=== PATIENT | female | born 1955 | race Caucasian/White ===

== ENCOUNTER 2017-02-17 12:58 | Emergency (ER) | payer BC ==
[~2017-02-17] VITALS: Ht 160 cm; Wt 70.0 kg
[~2017-02-17 12:58] MED LIST: ASPI-650 PO; ATEN-51 PO; BENA10TA48 PO; HYDR12.58 PO; PRAV10TA43 PO; TRIF10TA; TRIF5TAB7; TRIH2TAB2
[2017-02-17 13:06] VITALS: Ht 160 cm; Wt 70.0 kg
[2017-02-17] MEDS ORDERED: LIDOCAINE 1% (MDV) 20 ML INJ SC ONE (14:00)
--- NOTE | 2017-02-17 14:26 | RADRPT ---
PROCEDURE: XR Finger. CLINICAL INDICATION: Trauma. Left third finger pain. TECHNIQUE: Three views. Frontal, lateral, and oblique. COMPARISON: None available FINDINGS: There is an acute minimally displaced fracture of the terminal tuft of the third distal phalanx. Th ere is no other fracture and there is no dislocation. There is soft tissue injury overlying the fracture. Articular surfaces are intact. There is no lytic or blastic lesion. There is no radiopaque foreign body. IMPRESSION: 1. Acute minimally displaced fracture of the terminal tuft of the third distal phalanx with overlyi ng soft tissue injury. 2. Otherwise unremarkable images of the left third finger. RPTAT: QQ .Ruddy Davis MD, MD Date Time Electronically viewed and signed by .Ruddy Davis MD, on 02/17/2017 14:26 .R/
[2017-02-17] MEDS ORDERED: DIPHTH/TET/ACEL PERTUSS (ADULT) 0.5 ML VIAL IM* ONE (15:30)
[2017-02-17 15:43] VITALS: BP 161/83; PULSE 85; RESP 18; TEMP 97.5
--- NOTE | 2017-02-17 15:47 | ERD ---
ER Documentation Chief Complaint Date/Time DATE: 02/17/17 TIME: 15:42 Chief Complaint Pt with Lac to middle finger L hand after door closed on finger. HPI This is a 61-year-old female presenting to emergency department for laceration that occurred today. Patient states she slammed her middle left finger in a large steel door earlier today about 1 hour prior to arrival. At that time patient noticed a laceration to right middle fingertip. Patient denies any numbness or tingling to her extremity. No loss of sensation. Patient has active bleeding while in the ED. No fevers or chills. Patient has not had tetanus vaccine in over 10 years. ROS All systems reviewed and are negative except as per history of present illness. Medications Home Meds Reported Medications Trifluoperazine Hcl (Stelazine) 5 Mg Tab 02/16/13 Aspirin (Aspirin) 81 Mg Tablet, 81 MG PO DAILY 07/11/11 Hydrochlorothiazide* (Hydrochlorothiazide*) 12.5 Mg Tablet, 12.5 MG PO DAILY 07/11/11 Pravastatin Sodium* (Pravastatin Sodium*) 10 Mg Tablet, 10 MG PO DAILY 07/11/11 Atenolol* (Atenolol*) 25 Mg Tablet, 25 MG PO DAILY 07/11/11 Benazepril Hcl* (Benazepril Hcl*) 10 Mg Tablet, 10 MG PO DAILY 07/11/11 Trihexyphenidyl Hcl* (Artane*) 2 Mg Tab 08/08/10 Trifluoperazine Hcl (Trifluoperazine Hcl) 10 Mg Tablet 08/08/10 Allergies Allergies: Coded Allergies: No Known Allergies (Verified Allergy, Mild, 07/11/11) PMhx/Soc History of Surgery: No Anesthesia Reaction: No Hx Neurological Disorder: No Hx Respiratory Disorders: No Hx Cardiac Disorders: Yes (htn) Hx Psychiatric Problems: Yes (schizo) Hx Miscellaneous Medical Probl: No Hx Alcohol Use: No Hx Substance Use: No Hx Tobacco Use: No Smoking Status: Never smoker Physical Exam Vitals Vital Signs Date Time Temp Pulse Resp B/P Pulse Ox O2 Delivery O2 Flow Rate FiO2 02/17/17 13:06 97.9 104 18 141/87 97 Physical Exam Const: No acute distress, alert Head: Atraumatic Eyes: Normal Conjunctiva ENT: Normal External Ears, Nose and Mouth. Neck: Full range of motion..~ No meningismus. Resp: Clear to auscultation bilaterally Cardio: Regular rate and rhythm, no murmurs Abd: Soft, non tender, non distended. Normal bowel sounds Skin: No petechiae or rashes Back: No midline or flank tenderness Ext: Small laceration to distal aspect of right middle digit finger tip near nail bed. Neur: Awake and alert Psych: Normal Mood and Affect Results 24 hrs Current Medications Medications (Trade) Dose Ordered Sig/Ana Route PRN Reason Start Time Stop Time Status Last Admin Dose Admin Lidocaine (Xylocaine 1% (Mdv) 20 ml) 20 ml ONCE ONCE SC 02/17/17 14:00 02/17/17 14:01 DC Diphtheria/ Tetanus/Acell Pertussis (Adacel) 0.5 ml ONCE ONCE IM* 02/17/17 15:30 02/17/17 15:31 DC 02/17/17 15:11 Procedures/MDM Patient: DEBORAH VASQUEZ : 1955 Age: 61 Sex: F MR #: [id number] DOS: 02/17/17 1339 Ordering MD: ESTEFANIA GLASS NP Location: [facility] Room/Bed: PROCEDURE: XR Finger. CLINICAL INDICATION: Trauma. Left third finger pain. TECHNIQUE: Three views. Frontal, lateral, and oblique. COMPARISON: None available FINDINGS: There is an acute minimally displaced fracture of the terminal tuft of the third distal phalanx. There is no other fracture and there is no dislocation. There is soft tissue injury overlying the fracture. Articular surfaces are intact. There is no lytic or blastic lesion. There is no radiopaque foreign body. IMPRESSION: 1. Acute minimally displaced fracture of the terminal tuft of the third distal phalanx with overlying soft tissue injury. 2. Otherwise unremarkable images of the left third finger. MDM: 61-year-old female presents emergency department after injury to left third digit. Patient sustained laceration to distal aspect of left third digit. Laceration repair as described below. X-ray left third digit reviewed by radiologist as acute minimally displaced fracture of the terminal tuft of the third distal phalanx with overlying soft tissue injury. A metal splint was applied and patient remains neurovascularly intact pre-and post splint application. aceration Repair by me: Verbal consent obtained for laceration repair. Anesthesia: 1% lidocaine locally Location: distal aspect of left 3rd digit near nail bed Tendon/Joint/Nerves: No injury Foreign body: None detected after copious irrigation and exploration Technique: 4 Simple Interrupted Sutures Complexity: No subcutaneous sutures/mucosal repair/edge excision Post Closure Length: 1.5 cm Patient's bleeding was easily controlled in the department and there is no indication of anemia. No evidence of compartment syndrome, neurologic injury, vascular injury, open joint, tendon laceration, or foreign body. Patient is appropriate for outpatient follow up. 48 hour wound check. Scar minimization instructions given. Departure Diagnosis: Primary Impression: Laceration Additional Impression: Fracture, finger, distal phalanx Encounter type: initial encounter Finger: middle finger Fracture type: closed Fracture alignment: displaced Laterality: left Qualified Code: S62.633A - Closed displaced fracture of distal phalanx of left middle finger, initial encounter Condition: Stable Patient Instructions: Laceration, Hand Referrals: [facility] YOU HAVE RECEIVED A MEDICAL SCREENING EXAM AND THE RESULTS INDICATE THAT YOU DO NOT HAVE A CONDITION THAT REQUIRES URGENT TREATMENT IN THE EMERGENCY DEPARTMENT. FURTHER EVALUATION AND TREATMENT OF YOUR CONDITION CAN WAIT UNTIL YOU ARE SEEN IN YOUR DOCTORS OFFICE WITHIN THE NEXT 1-2 DAYS. IT IS YOUR RESPONSIBILITY TO MAKE AN APPOINTMENT FOR [facility]. IF YOU HAVE A PRIMARY DOCTOR --you should call your primary doctor and schedule an appointment IF YOU DO NOT HAVE A PRIMARY DOCTOR YOU CAN CALL OUR PHYSICIAN REFERRAL HOTLINE AT IF YOU CAN NOT AFFORD TO SEE A PHYSICIAN YOU CAN CHOSE FROM THE FOLLOW[facility] [address] [facility]. [facility] [address] [facility] [address] [facility] [address] [facility]. [facility] [address] [facility]. [facility]. [address] [facility] YOU HAVE RECEIVED A MEDICAL SCREENING EXAM AND THE RESULTS INDICATE THAT YOU DO NOT HAVE A CONDITION THAT REQUIRES URGENT TREATMENT IN THE EMERGENCY DEPARTMENT. FURTHER EVALUATION AND TREATMENT OF YOUR CONDITION CAN WAIT UNTIL YOU ARE SEEN IN YOUR DOCTORS OFFICE WITHIN THE NEXT 1-2 DAYS. IT IS YOUR RESPONSIBILITY TO MAKE AN APPOINTMENT FOR FOLOW-UP CARE. IF YOU HAVE A PRIMARY DOCTOR --you should call your primary doctor and schedule and appointment IF YOU DO NOT HAVE A PRIMARY DOCTOR YOU CAN CALL OUR PHYSICIAN REFERRAL HOTLINE AT . IF YOU CAN NOT AFFORD TO SEE A PHYSICIAN YOU CAN CHOSE FROM THE FOLLOWING [facility] INSTITUTIONS: [facility] [address] [place] [address] [facility] [address] [place] [address] [facility] [address] [place] [address] Additional Instructions: Return to ED in 2 days for wound recheck. Return to ED for any high fever, chest pain, difficulty breathing, shortness breath, wheezing, vomiting, diarrhea, abdominal pain or any new or worsening symptoms. ESTEFANIA GLASS NP Feb 17, 2017 15:47
== END 2017-02-17 15:44 | disposition home or self-care (01) ==
LOC: FTE 12:58
DX: S62.633A Displaced fracture of distal phalanx of left middle finger, initial encounter for closed fracture (principal); I10 Essential (primary) hypertension; W26.8XXA Contact with other sharp object(s), not elsewhere classified, initial encounter; Y92.9 Unspecified place or not applicable; Z79.82 Long term (current) use of aspirin
CPT/HCPCS: 73140; 90471; 90715

== ENCOUNTER 2019-06-19 03:23 | Emergency (ER) | payer BC ==
[~2019-06-19] VITALS: Ht 160 cm; Wt 63.9 kg
[~2019-06-19 03:23] MED LIST changes: +BENA10TA4 PO; -BENA10TA48 PO; +NAPR-985 PO
[2019-06-19 03:26] VITALS: BP 148/85; PULSE 89; RESP 17; Ht 160 cm; Wt 63.9 kg
[2019-06-19] MEDS ORDERED: IBUPROFEN 600 MG TAB PO ONE (04:30)
--- NOTE | 2019-06-20 05:51 | ERD ---
ER Documentation Chief Complaint Chief Complaint BIB RA 889 W/ C/O NON TRAUMATIC RT THIGH PAIN X2 DAYS HPI 63-year-old female with no significant past medical history presents to the emergency department complaining of constant, 10/10 severity, alleviated with Tylenol, right hip and right thigh pain for the past 2 days. She denies any falls or trauma or fevers or chills or other symptoms at this time. ROS All systems reviewed and are negative except as per history of present illness. Medications Home Meds Active Scripts Naproxen* (Naprosyn*) 500 Mg Tablet, 500 MG PO BID PRN for PAIN AND/OR INFLAMMATION, #30 TAB Prov:EUN MACKENZIE PA-C 06/19/19 Reported Medications Trifluoperazine Hcl (Stelazine) 5 Mg Tab 02/16/13 Aspirin (Aspirin) 81 Mg Tablet, 81 MG PO DAILY 07/11/11 Hydrochlorothiazide* (Hydrochlorothiazide*) 12.5 Mg Tablet, 12.5 MG PO DAILY 07/11/11 Pravastatin Sodium* (Pravastatin Sodium*) 10 Mg Tablet, 10 MG PO DAILY 07/11/11 Atenolol* (Atenolol*) 25 Mg Tablet, 25 MG PO DAILY 07/11/11 Benazepril Hcl* (Benazepril Hcl*) 10 Mg Tablet, 10 MG PO DAILY 07/11/11 Trihexyphenidyl Hcl* (Artane*) 2 Mg Tab 08/08/10 Trifluoperazine Hcl (Trifluoperazine Hcl) 10 Mg Tablet 08/08/10 Allergies Allergies: Coded Allergies: No Known Allergies (Verified Allergy, Mild, 07/11/11) PMhx/Soc Medical and Surgical Hx: pt denies Surgical Hx History of Surgery: No Anesthesia Reaction: No Hx Neurological Disorder: No Hx Respiratory Disorders: No Hx Cardiac Disorders: Yes (htn) Hx Psychiatric Problems: Yes (schizo) Hx Miscellaneous Medical Probl: No Hx Alcohol Use: No Hx Substance Use: No Hx Tobacco Use: No Smoking Status: Never smoker FmHx Family History: No diabetes Physical Exam Vitals Vital Signs Date Temp Pulse Resp B/P (MAP) Pulse Ox O2 O2 Flow FiO2 Time Delivery Rate 06/19/19 97.8 89 17 148/85 97 03:26 (106) Physical Exam Const: No acute distress Head: Atraumatic Eyes: Normal Conjunctiva ENT: Normal External Ears, Nose and Mouth. Neck: Full range of motion. No meningismus. Resp: Clear to auscultation bilaterally Cardio: Regular rate and rhythm, no murmurs Abd: Soft, non tender, non distended. Normal bowel sounds Skin: No petechiae or rashes Back: No midline or flank tenderness Ext: Tenderness palpation of the right lateral hip and the right upper leg. No ecchymosis. Patient is neurovascularly intact to the right lower extremity. Neur: Awake and alert Psych: Normal Mood and Affect Results 24 hrs Current Medications Medications Dose Sig/Ana Start Time Status Last (Trade) Ordered Route PRN Stop Time Admin Dose Reason Admin Ibuprofen 600 mg ONCE ONCE 06/19/19 DC 06/19/19 (Motrin) PO 04:30 06/19/19 04:47 04:31 Procedures/MDM 63-year-old female presenting to the emergency department complaining of right hip and right thigh pain. Venous Doppler of the right lower extremity showed no evidence of DVT. X-ray of the right femur and the right hip were within normal limits. No evidence of fracture. I have low suspicion for compartment syndrome. Low suspicion for DVT. Low suspicion for cellulitis. Patient is stable and appropriate for discharge and further outpatient management with prescriptions. Patient advised to return here immediately for any new, worsening, or concerning symptoms. Patient's blood pressure was elevated (>120/80) but appears stable without evidence of hypertension emergency or urgency. The patient is to follow-up and pursue outpatient monitoring and therapy with their primary care physician within 1 week and return immediately if they have any new, worsening, or conc erning symptoms. Departure Diagnosis: Primary Impression: Right leg pain Condition: Fair Patient Instructions: Muscle Strain, Extremity Referrals: [facility] YOU HAVE RECEIVED A MEDICAL SCREENING EXAM AND THE RESULTS INDICATE THAT YOU DO NOT HAVE A CONDITION THAT REQUIRES URGENT TREATMENT IN THE EMERGENCY DEPARTMENT. FURTHER EVALUATION AND TREATMENT OF YOUR CONDITION CAN WAIT UNTIL YOU ARE SEEN IN YOUR DOCTORS OFFICE WITHIN THE NEXT 1-2 DAYS. IT IS YOUR RESPONSIBILITY TO MAKE AN APPOINTMENT FOR FOLOW-UP CARE. IF YOU HAVE A PRIMARY DOCTOR --you should call your primary doctor and schedule an appointment IF YOU DO NOT HAVE A PRIMARY DOCTOR YOU CAN CALL OUR PHYSICIAN REFERRAL HOTLINE AT IF YOU CAN NOT AFFORD TO SEE A PHYSICIAN YOU CAN CHOSE FROM THE FOLLOWING [facility]ICS [facility] [address] [facility] [address] [facility]. [facility] [address] [facility] [address] [facility]. [facility] [id number] [facility] [facility] [address] Additional Instructions: Call your primary care doctor TOMORROW for an appointment during the next 1-2 days.See the doctor sooner or return here if your condition worsens before your appointment time. EUN MACKENZIE PA-C Jun 20, 2019 05:51
== END 2019-06-19 05:30 | disposition home or self-care (01) ==
LOC: FTE 03:23
DX: M79.604 Pain in right leg (principal); M79.651 Pain in right thigh; I10 Essential (primary) hypertension; Z79.82 Long term (current) use of aspirin
CPT/HCPCS: 73502; 73510; 73550; 73552; 93971